=== PATIENT | female | born 1985 | race African-American/Black ===

== ENCOUNTER 2016-11-12 17:03 | Emergency (ER) | payer SELFPAY ==
--- NOTE | 2016-11-12 17:10 | ER Document Report ---
ED Medical Screen (RME) - General Stated Complaint: KNOT ON UNDERARM Mode of Arrival: Ambulatory Information source: Patient Notes: c/o painful knot, described as dull and constant, to the right axilla that has been present for the past 3 months but worsened this morning with increase in size, redness, and warmth. Denies drainage, fever, vomiting. Endorses associated nausea, chills. She has tried tylenol/ibuprofen without relief. I have greeted and performed a rapid initial assessment of this patient. A comprehensive ED assessment and evaluation of the patient, analysis of test results and completion of the medical decision making process will be conducted by additional ED providers. TRAVEL OUTSIDE OF THE [place] IN LAST 30 DAYS: No - Related Data Allergies/Adverse Reactions: No Known Allergies Allergy (Verified 11/12/16 17:08) Past Medical History Neurological Medical History: Reports: Hx Migraine Endocrine Medical History: Reports: Hx Diabetes Mellitus Type 2 - gestational only Musculoskeltal Medical History: Reports Hx Musculoskeletal Trauma Traumatic Medical History: Reports: Hx Fractures - toe Past Surgical History: Reports: Hx Section, Hx Tubal Ligation - Immunizations Immunizations up to date: Yes Hx Diphtheria, Pertussis, Tetanus Vaccination: Yes - 2013 Physical Exam - Vital signs Vitals: Temp Pulse Resp BP Pulse Ox 97.8 F 85 16 123/72 98 11/12/16 17:08 11/12/16 17:08 11/12/16 17:08 11/12/16 17:08 11/12/16 17:08 Course - Vital Signs Vital signs: Temp Pulse Resp BP Pulse Ox 97.8 F 85 16 123/72 98 11/12/16 17:08 11/12/16 17:08 11/12/16 17:08 11/12/16 17:08 11/12/16 17:08
--- NOTE | 2016-11-12 18:19 | ER Document Report ---
HPI - HPI Patient complains to provider of: soft tissue mass getting larger Onset: Other - 3 months Onset/Duration: Gradual Quality of pain: Achy Pain Level: 4 Context: 31-year-old female complaining of enlarging soft tissue mass under her right axilla. Her primary care doctor told her it was assisting gave her clindamycin which has not improved it. It is not red or hot. No fever. No breast pain. Associated Symptoms: None Exacerbated by: Movement Relieved by: Denies Similar symptoms previously: No Recently seen / treated by doctor: Yes - ROS ROS below otherwise negative: Yes Systems Reviewed and Negative: Yes All other systems reviewed and negative - REPRODUCTIVE LMP: unknown Reproductive: DENIES: : - DERM Skin Color: Normal Past Medical History - General Information source: Patient - Social History Smoking Status: Current Every Day Smoker Chew tobacco use (# tins/day): No Frequency of alcohol use: Rare Drug Abuse: None Family History: Arthritis, CAD, CVA, DM, Hypertension, Malignancy, Thyroid Disfunction Patient has suicidal ideation: No Patient has homicidal ideation: No Neurological Medical History: Reports: Hx Migraine Endocrine Medical History: Reports: Hx Diabetes Mellitus Type 2 - gestational only Renal/ Medical History: Denies: Hx Peritoneal Dialysis Musculoskeltal Medical History: Reports Hx Musculoskeletal Trauma Traumatic Medical History: Reports: Hx Fractures - toe Past Surgical History: Reports: Hx Section, Hx Tubal Ligation - Immunizations Immunizations up to date: Yes Hx Diphtheria, Pertussis, Tetanus Vaccination: Yes - 2013 Vertical Provider Document - CONSTITUTIONAL Agree With Documented VS: Yes Exam Limitations: No Limitations - INFECTION CONTROL TRAVEL OUTSIDE OF THE [place] IN LAST 30 DAYS: No - HEENT HEENT: Normocephalic - NECK Neck: Supple - RESPIRATORY Respiratory: Breath Sounds Normal, No Respiratory Distress O2 Sat by Pulse Oximetry: 98 - CARDIOVASCULAR Cardiovascular: Regular Rate, Regular Rhythm - NEURO Level of Consciousness: Awake, Alert - DERM Integumentary: Warm, Dry Notes: Soft tissue mass inferior to the right axilla, in posterior axillary line, not red or hot Course - Re-evaluation Re-evalutation: 11/12/16 20:09 The ultrasound suggests a lipoma which I explained to the patient for general surgery follow up - Vital Signs Vital signs: Temp Pulse Resp BP Pulse Ox 97.8 F 85 16 123/72 98 11/12/16 17:08 11/12/16 17:08 11/12/16 17:08 11/12/16 17:08 11/12/16 17:08 Discharge - Discharge Clinical Impression: Lipoma Qualifiers: Lipoma location: trunk Qualified Code(s): D17.1 - Benign lipomatous neoplasm of skin and subcutaneous tissue of trunk Condition: Good Disposition: HOME, SELF-CARE Instructions: Growth or Mass, Pending Workup ([facility]) Additional Instructions: see the general surgeon if you want the lipoma taken out to er any concerns or it gets red, hot, more tender Referrals: TYESHA LORA MD [ACTIVE STAFF] - Follow up as needed
[2016-11-12 20:05] VITALS: BP 115/67
== END 2016-11-12 20:14 | disposition home or self-care (01) ==
LOC: ER 17:03
DX: D17.1 Benign lipomatous neoplasm of skin and subcutaneous tissue of trunk (principal); F17.200 Nicotine dependence, unspecified, uncomplicated
CPT/HCPCS: 76882; 99283

== ENCOUNTER 2016-12-03 18:09 | Emergency (ER) | payer OTHER ==
[2016-12-03 18:17] VITALS: BP 136/81
[2016-12-03] MEDS ORDERED: IBUPROFEN 800 MG TABLET PO ONE (19:19)
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
[2016-12-03] MEDS ORDERED: HYDROCODONE/ACETAMINOPHEN 5-325 MG 6 TAB/DSPK PO PRN (22:06)
[2016-12-03] MEDS ORDERED: HYDROCORTISONE ACETATE 25 MG SUPP.RECT PR ONE (22:08)
== END 2016-12-03 22:47 | disposition home or self-care (01) ==
LOC: ER 18:09
DX: M54.5 Low back pain (principal); M54.2 Cervicalgia; M25.519 Pain in unspecified shoulder; V43.52XA Car driver injured in collision with other type car in traffic accident, initial encounter; K64.4 Residual hemorrhoidal skin tags
CPT/HCPCS: 99283; 72110; 72070; J3490

== ENCOUNTER 2017-02-18 21:00 | Emergency (ER) | payer SELFPAY ==
--- NOTE | 2017-02-18 22:54 | RADIOLOGY REPORT (SQ) ---
EXAM DESCRIPTION: WRIST LEFT 2 VIEWS COMPLETED DATE/TIME: 02/18/2017 10:41 pm REASON FOR STUDY: pain COMPARISON: 04/18/2014. NUMBER OF VIEWS: Two views. TECHNIQUE: AP and lateral radiographic images acquired of the left wrist. LIMITATIONS: None. FINDINGS: MINERALIZATION: Normal. BONES: No acute fracture or dislocation. No worrisome bone lesions. Normal alignment. SOFT TISSUES: No soft tissue swelling. No foreign body. OTHER: No other significant finding. IMPRESSION: NEGATIVE STUDY OF THE LEFT WRIST. NO RADIOGRAPHIC EVIDENCE OF ACUTE INJURY. TECHNICAL DOCUMENTATION: JOB ID: [id number] [employer]- All Rights Reserved
--- NOTE | 2017-02-18 22:55 | RADIOLOGY REPORT (SQ) ---
EXAM DESCRIPTION: HAND LEFT 2 VIEWS COMPLETED DATE/TIME: 02/18/2017 10:41 pm REASON FOR STUDY: pain COMPARISON: 07/05/2012. EXAM PARAMETERS: NUMBER OF VIEWS: Two view. TECHNIQUE: AP and lateral radiographic images acquired of the left hand. LIMITATIONS: None. FINDINGS: MINERALIZATION: Normal. BONES: No acute fracture or dislocation. No worrisome bone lesions. JOINTS: No effusions. SOFT TISSUES: No soft tissue swelling. No foreign body. OTHER: No other significant finding. IMPRESSION: NEGATIVE STUDY OF THE LEFT HAND. NO RADIOGRAPHIC EVIDENCE OF ACUTE INJURY. TECHNICAL DOCUMENTATION: JOB ID: [id number] [employer]- All Rights Reserved
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
[2017-02-19 00:54] VITALS: BP 118/78
== END 2017-02-19 00:49 | disposition home or self-care (01) ==
LOC: ER 21:00
DX: M79.642 Pain in left hand (principal); M54.2 Cervicalgia; M54.9 Dorsalgia, unspecified; F17.200 Nicotine dependence, unspecified, uncomplicated; V89.2XXA Person injured in unspecified motor-vehicle accident, traffic, initial encounter; Z98.51 Tubal ligation status
CPT/HCPCS: 99283

== ENCOUNTER 2017-05-20 14:53 | Emergency (ER) | payer SELFPAY ==
[2017-05-20] MEDS ORDERED: ONDANSETRON HCL INJ/PF 4 MG/2 ML SDV IV ONE (15:14)
[2017-05-20] MEDS ORDERED: NORMAL SALINE 1000 ML 1,000 ML IV PRN (15:14)
--- NOTE | 2017-05-20 15:16 | ER Document Report ---
ED Medical Screen (RME) - General Chief Complaint: Abdominal Cramping Stated Complaint: ABDOMINAL PAIN Time Seen by Provider: 05/20/17 15:14 Notes: Patient reports stating that she ate at [employer] last night and immediately began to have severe cramping and vomiting that is continued. She noticed on the bottom of the Bun that there was mold. Patient brings the food in with her and has it in her purse. She showed me a bun with what appears to be green mold on it. TRAVEL OUTSIDE OF THE [place] IN LAST 30 DAYS: No - Related Data Allergies/Adverse Reactions: No Known Allergies Allergy (Verified 05/20/17 15:02) Past Medical History - Social History Frequency of alcohol use: None Drug Abuse: None Neurological Medical History: Reports: Hx Migraine Endocrine Medical History: Reports: Hx Diabetes Mellitus Type 2 - gestational only Renal/ Medical History: Denies: Hx Peritoneal Dialysis Musculoskeltal Medical History: Reports Hx Musculoskeletal Trauma Traumatic Medical History: Reports: Hx Fractures - toe Past Surgical History: Reports: Hx Section, Hx Tubal Ligation - Immunizations Immunizations up to date: Yes Hx Diphtheria, Pertussis, Tetanus Vaccination: Yes - 2013 Physical Exam - Vital signs Vitals: Temp Pulse Resp BP Pulse Ox 98.6 F 94 14 127/82 H 100 05/20/17 15:02 05/20/17 15:02 05/20/17 15:02 05/20/17 15:02 05/20/17 15:02 Course - Vital Signs Vital signs: Temp Pulse Resp BP Pulse Ox 98.6 F 94 14 127/82 H 100 05/20/17 15:02 05/20/17 15:02 05/20/17 15:02 05/20/17 15:02 05/20/17 15:02
[2017-05-20 15:54] LABS: ABSOLUTE BASOPHILS # (AUTO) 0.1 10^3/uL (0.0-0.2); ABSOLUTE EOSINOPHILS # (AUTO) 0.2 10^3/uL (0.0-0.6); ABSOLUTE LYMPHOCYTES (AUTO) 3.1 10^3/uL (0.5-4.7); ABSOLUTE MONOCYTES (AUTO) 0.7 10^3/uL (0.1-1.4); ABSOLUTE NEUT (AUTO) 6.2 10^3/uL (1.7-8.2); BASOPHILS % (AUTO) 0.5 % (0-2); EOSINOPHILS % (AUTO) 2.3 % (0-6); HEMATOCRIT 38.6 % (36.0-47.0); HEMOGLOBIN 12.9 g/dL (12.0-15.5); HGB HCT DIFFERENCE 0.1; LYMPHOCYTES % (AUTO) 29.9 % (13-45); MEAN CORPUSCULAR HEMOGLOBIN 31.5 pg (27.0-33.4); MEAN CORPUSCULAR HGB CONC 33.5 g/dL (32.0-36.0); MEAN CORPUSCULAR VOLUME 94 fl (80-97); MONOCYTES % (AUTO) 6.8 % (3-13); RED BLOOD COUNT 4.11 10^6/uL (3.72-5.28); RED CELL DISTRIBUTION WIDTH 13.9 % (11.5-14.0); SEGMENTED NEUTROPHILS % (AUTO) 60.5 % (42-78); WHITE BLOOD COUNT 10.3 10^3/uL (4.0-10.5)
[2017-05-20 16:07] LABS: AMORPHOUS SEDIMENT,URINE TRACE /HPF; APPEARANCE,URINE TURBID; BILIRUBIN,URINE NEGATIVE (NEGATIVE); GLUCOSE, URINE NEGATIVE (NEGATIVE); KETONES,URINE NEGATIVE (NEGATIVE); LEUKOCYTE ESTERASE,URINE LARGE (NEGATIVE); NITRITE,URINE POSITIVE (NEGATIVE); PROTEIN,URINE 30 mg/dL (NEGATIVE); URINE SPECIFIC GRAVITY 1.026; UROBILINOGEN,URINE NEGATIVE mg/dL (<2.0)
[2017-05-20 16:12] LABS: ALANINE AMINOTRANSFERASE 29 U/L (9-52); ALBUMIN 4.7 g/dL (3.5-5.0); ALKALINE PHOSPHATASE 57 U/L (38-126); ANION GAP 15 (5-19); ASPARTATE AMINO TRANSFERASE 23 U/L (14-36); BILIRUBIN,DIRECT 0.4 mg/dL (0.0-0.4); BILIRUBIN,TOTAL 0.5 mg/dL (0.2-1.3); BLOOD UREA NITROGEN 15 mg/dL (7-20); CARBON DIOXIDE 25 mmol/L (22-30); CHLORIDE 102 mmol/L (98-107); CREATININE RESULT 0.79 mg/dL (0.52-1.25); GLUCOSE 91 mg/dL (75-110); LIPASE 46.9 U/L (23-300); POTASSIUM 3.6 mmol/L (3.6-5.0); SODIUM 141.5 mmol/L (137-145); TOTAL PROTEIN 7.9 g/dL (6.3-8.2)
--- NOTE | 2017-05-20 16:49 | ER Document Report ---
ED GI/ - General Chief Complaint: Abdominal Cramping Stated Complaint: ABDOMINAL PAIN Time Seen by Provider: 05/20/17 15:14 Mode of Arrival: Ambulatory Information source: Patient Notes: 31 yo normally health female that ate chicken sandwich with moldy bread at 1:30 am, went to work ate it, bad taste in mouth, tried to make herself vomit, bottom of bun was molded, at 5:30 am stomach started to cramp, vomiting, headache, nausea. Diarrhea x 2. feeling a little better after meds and IV NS infusing. Taking azo for 2 days, had terminal dysuria. TRAVEL OUTSIDE OF THE [place] IN LAST 30 DAYS: No - Related Data Allergies/Adverse Reactions: No Known Allergies Allergy (Verified 05/20/17 15:02) Past Medical History - General Information source: Patient - Social History Smoking Status: Current Every Day Smoker Frequency of alcohol use: None Drug Abuse: None Lives with: Family Family History: Arthritis, CAD, CVA, DM, Hypertension, Malignancy, Thyroid Disfunction Patient has suicidal ideation: No Patient has homicidal ideation: No Neurological Medical History: Reports: Hx Migraine Endocrine Medical History: Reports: Hx Diabetes Mellitus Type 2 - gestational only Renal/ Medical History: Denies: Hx Peritoneal Dialysis Musculoskeltal Medical History: Reports Hx Musculoskeletal Trauma Traumatic Medical History: Reports: Hx Fractures - toe Past Surgical History: Reports: Hx Section, Hx Tubal Ligation - Immunizations Immunizations up to date: Yes Hx Diphtheria, Pertussis, Tetanus Vaccination: Yes - 2013 Review of Systems - Review of Systems Constitutional: No symptoms reported EENT: No symptoms reported Cardiovascular: No symptoms reported Respiratory: No symptoms reported Gastrointestinal: See HPI Genitourinary: No symptoms reported Female Genitourinary: No symptoms reported Musculoskeletal: No symptoms reported Skin: No symptoms reported Hematologic/Lymphatic: No symptoms reported Neurological/Psychological: No symptoms reported Physical Exam - Vital signs Vitals: Temp Pulse Resp BP Pulse Ox 98.6 F 94 14 127/82 H 100 05/20/17 15:02 05/20/17 15:02 05/20/17 15:02 05/20/17 15:02 05/20/17 15:02 Interpretation: Normal - General General appearance: Appears well, Alert In distress: None - HEENT Head: Normocephalic, Atraumatic Eyes: Normal Pupils: PERRL Mucous membranes: Dry Neck: Supple. No: Lymphadenopathy - Respiratory Respiratory status: No respiratory distress Chest status: Nontender Breath sounds: Normal Chest palpation: Normal - Cardiovascular Rhythm: Regular Heart sounds: Normal auscultation Murmur: No - Abdominal Inspection: Normal Distension: No distension Bowel sounds: Normal Tenderness: Tender - mild supropubic Organomegaly: No organomegaly. No: Hepatomegaly, Splenomegaly - Back Back: Normal, Nontender. No: CVA tenderness - Extremities General upper extremity: Normal inspection, Nontender, Normal color, Normal ROM , Normal temperature General lower extremity: Normal inspection, Nontender, Normal color, Normal ROM , Normal temperature, Normal weight bearing. 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 - Vital Signs Vital signs: Temp Pulse Resp BP Pulse Ox 98.4 F 66 16 129/85 H 100 05/20/17 17:53 05/20/17 17:53 05/20/17 17:53 05/20/17 17:53 05/20/17 17:53 - Laboratory Result Diagrams: 05/20/17 15:35 05/20/17 15:35 Laboratory results interpreted by me: 05/20/17 15:35 Urine Protein 30 H Urine Blood SMALL H Urine Nitrite POSITIVE H Ur Leukocyte Esterase LARGE H Discharge - Discharge Clinical Impression: Vomiting and diarrhea, Abdominal cramping, Urinary tract infection Condition: Good Disposition: HOME, SELF-CARE Instructions: Diarrhea, Nonspecific ([facility]), Nausea or Vomiting, Nonspecific ([facility] ), Rocephin ([facility]), Urinary Tract Infection ([facility]) Additional Instructions: plenty of fluids antinausea medication prescription for you to er if worse urine culture is pending Please complete the patient satisfaction survey if you get one, and return it.. If you do not receive a survey, then you can go to the [facility] website, [email or web address] and place your comments about your very good care. Thank you very much. It was a pleasure being your medical provider today. Prescriptions: Promethazine HCl [Phenergan 25 mg Tablet] 25 mg PO Q4HP PRN #30 tablet PRN Reason: Nitrofurantoin/Nitrofuran Mac [Macrobid 100 mg Capsule] 100 mg PO BID #14 capsule Forms: Return to Work
[2017-05-20] MEDS ORDERED: ACETAMINOPHEN 325 MG TABLET PO ONE (17:19)
[2017-05-20] MEDS ORDERED: CEFTRIAXONE 1 GM/D5W RTU 1 GM/50 ML RTUPB IV ONE (18:00)
[2017-05-20 18:09] VITALS: BP 129/85
== END 2017-05-20 18:05 | disposition home or self-care (01) ==
LOC: ER 14:53
DX: N39.0 Urinary tract infection, site not specified (principal); R11.2 Nausea with vomiting, unspecified; R19.7 Diarrhea, unspecified; R10.9 Unspecified abdominal pain; R51 Headache; F17.200 Nicotine dependence, unspecified, uncomplicated
CPT/HCPCS: 99284; 96361; 96375; 96365; 36415; 87086; 83690; 85025; 81025; 87088; 80053; 81001; 87186; J2405; J7030; J0696

== ENCOUNTER 2017-07-29 19:35 | Emergency (ER) | payer SELFPAY | END 2017-07-29 20:00 | disposition left against medical advice (07) | LOC: ER 19:35 | DX: Z53.21 Procedure and treatment not carried out due to patient leaving prior to being seen by health care provider (principal) ==

== ENCOUNTER 2018-02-28 08:23 | Emergency (ER) | payer SELFPAY ==
--- NOTE | 2018-02-28 09:13 | ER Document Report ---
ED General - General Chief Complaint: Swollen Glands Stated Complaint: lymph node Mode of Arrival: Ambulatory Information source: Patient TRAVEL OUTSIDE OF THE [place] IN LAST 30 DAYS: No - HPI Notes: 32-year-old female presents to the ED with complaints of right side of torso, distal to axillary with a palpable mass that has been there for approximately 4 years but has become progressively worse in the last week and a half. States she has had this mass evaluated 4 years ago by her primary care doctor, was told she can remember exactly. Has tried [id number] ibuprofen without full relief. Patient denies any breast mass or breast pain. No nipple discharge. Family history of breast cancer. Denies fevers, chills, chest pain ,palpitations, shortness of breath, dyspnea, nausea, vomiting, diarrhea, abdominal pain, hematuria,blurred vision, double vision, loss of vision, speech changes, LH, dizziness, syncope, headaches, wheezing, ST, URI, neck pain, weakness, bowel or bladder dysfunction, saddle anesthesia, numbness or tingling in bilateral upper or lower extremities equally, muscle paralysis, weakness in bilateral upper or lower extremities equally or rash. Denies IV drug use. - Related Data Allergies/Adverse Reactions: No Known Allergies Allergy (Verified 02/28/18 08:27) Past Medical History - General Information source: Patient - Social History Smoking Status: Current Every Day Smoker Chew tobacco use (# tins/day): No Frequency of alcohol use: None Drug Abuse: None Family History: Arthritis, CAD, CVA, DM, Hypertension, Malignancy, Thyroid Disfunction Patient has suicidal ideation: No Patient has homicidal ideation: No Neurological Medical History: Reports: Hx Migraine Endocrine Medical History: Reports: Hx Diabetes Mellitus Type 2 - gestational only Renal/ Medical History: Denies: Hx Peritoneal Dialysis Musculoskeltal Medical History: Reports Hx Musculoskeletal Trauma Traumatic Medical History: Reports: Hx Fractures - toe Past Surgical History: Reports: Hx Section, Hx Tubal Ligation - Immunizations Immunizations up to date: Yes Hx Diphtheria, Pertussis, Tetanus Vaccination: Yes - 2013 Review of Systems - Review of Systems Constitutional: No symptoms reported EENT: No symptoms reported Cardiovascular: No symptoms reported Respiratory: No symptoms reported Gastrointestinal: No symptoms reported Genitourinary: No symptoms reported Female Genitourinary: No symptoms reported Musculoskeletal: No symptoms reported Skin: See HPI Hematologic/Lymphatic: No symptoms reported Neurological/Psychological: No symptoms reported Physical Exam - Vital signs Vitals: Temp Pulse Resp BP Pulse Ox 98.4 F 69 14 129/81 H 99 02/28/18 08:32 02/28/18 08:32 02/28/18 08:32 02/28/18 08:32 02/28/18 08:32 - Notes Notes: PHYSICAL EXAMINATION: GENERAL: Well-appearing, well-nourished and in no acute distress. HEAD: Atraumatic, normocephalic. EYES: Pupils equal round and reactive to light, extraocular movements intact, conjunctiva are normal. ENT: Nares patent, oropharynx clear without exudates. Moist mucous membranes. NECK: Normal range of motion, supple without lymphadenopathy LUNGS: Breath sounds clear to auscultation bilaterally and equal. No wheezes rales or rhonchi. HEART: Regular rate and rhythm without murmurs ABDOMEN: Soft, nontender, nondistended abdomen. No guarding, no rebound. No masses appreciated. Female : deferred Musculoskeletal: Normal range of motion, no pitting or edema. No cyanosis. NEUROLOGICAL: Cranial nerves grossly intact. Normal speech, normal gait. Normal sensory, motor exams PSYCH: Normal mood, normal affect. SKIN: Warm, Dry, normal turgor, no rashes or lesions noted. Approximately 6 cm distal to the axilla with mobile, soft mass that is without erythema, induration or swelling pain no surrounding lymphadenopathy. right breast mass palpated in the axilla around breast tissue. No nipple discharge. No dimpling noted to right breast. Course - Re-evaluation Re-evalutation: 02/28/18 11:56 32-year-old female afebrile, vitals stable and in no distress presents for evaluation of a lump to her right torso, CBC negative for leukocytosis or anemia. CMP negative, no electrolyte disturbances.Ultrasound of the right mass shows an Increased size of lipoma measuring 2.9 x 4.2 x 1.6 cm. Discussed with patient that she will need a surgical consult to have lipoma removed, lipoma does not look infected, no pain or induration. Discussed with patient she also needs to do self breast exams monthly while in the shower to assess for any breast mass. I have reevaluated this patient multiple times and no significant life threatening changes, no signs of toxicity, sepsis or peritonitis are noted. The patient and I have discussed the diagnosis and risks , and we agree with discharging home and close follow-up. We also discussed returning to the Emergency Department immediately if new or worsening symptoms occur with the understanding that symptoms and presentations can change. At this time will discharge with return precautions and follow-up recommendations. Verbal discharge instructions given a the bedside and opportunity for questions given. We have discussed the symptoms which are most concerning (e.g. worsening pain, edema, drainage of mass, fever chills, etc. ) that necessitate immediate return. Medication warnings reviewed. All questions and concerns answered by this provider. Patient is in agreement with this plan and has verbalized understanding of return precautions and the need for primary care follow up as well as a surgeon to follow-up in the next 24-72 hours. Patient verbalized understanding of plan of care and agree with plan of care. - Vital Signs Vital signs: Temp Pulse Resp BP Pulse Ox 97.6 F 63 16 126/80 H 100 02/28/18 12:02 02/28/18 12:02 02/28/18 12:02 02/28/18 12:02 02/28/18 12:02 - Laboratory Result Diagrams: 02/28/18 10:10 02/28/18 10:10 Laboratory results interpreted by me: 02/28/18 10:10 Hct 35.9 L RDW 14.1 H Discharge - Discharge Clinical Impression: Lipoma Qualifiers: Lipoma location: other site Qualified Code(s): D17.79 - Benign lipomatous neoplasm of other sites Condition: Stable Disposition: HOME, SELF-CARE Additional Instructions: Your ultrasound showed that you have a lipoma, which is a benign fatty tissue, which is not infected. advised to follow-up with surgeon for removal. Take over -the-counter ibuprofen and Tylenol as needed for pain control. Do not manipulate lipoma. Follow-up with PCP within 3 days. Return immediately for any new or worsening symptoms. Follow up with primary care provider, call tomorrow to make followup appointment. Referrals: GERARDO MORA MD [[facility]] - Follow up in 1 week RUBÉN GÓMEZ MD [COMMUNITY BASED STAFF] - Follow up in 3-5 days PETER JOSHI MD [ACTIVE STAFF] - Follow up in 3-5 days
[2018-02-28] MEDS ORDERED: KETOROLAC TROMETHAMINE 60 MG/2 ML SDV IM ONE (09:36)
[2018-02-28] MEDS ORDERED: IBUPROFEN 800 MG TABLET PO ONE (09:48)
[2018-02-28 10:25] LABS: ABSOLUTE EOSINOPHILS # (AUTO) 0.1 10^3/uL (0.0-0.6); ABSOLUTE LYMPHOCYTES (AUTO) 1.9 10^3/uL (0.5-4.7); ABSOLUTE MONOCYTES (AUTO) 0.5 10^3/uL (0.1-1.4); ABSOLUTE NEUT (AUTO) 4.8 10^3/uL (1.7-8.2); BASOPHILS % (AUTO) 0.2 % (0-2); EOSINOPHILS % (AUTO) 1.7 % (0-6); HEMATOCRIT 35.9 % (36.0-47.0); HEMOGLOBIN 12.2 g/dL (12.0-15.5); LYMPHOCYTES % (AUTO) 26.1 % (13-45); MEAN CORPUSCULAR HEMOGLOBIN 31.1 pg (27.0-33.4); MEAN CORPUSCULAR HGB CONC 33.9 g/dL (32.0-36.0); MEAN CORPUSCULAR VOLUME 92 fl (80-97); MONOCYTES % (AUTO) 7.1 % (3-13); PLATELET COUNT 201 10^3/uL (150-450); RED BLOOD COUNT 3.92 10^6/uL (3.72-5.28); RED CELL DISTRIBUTION WIDTH 14.1 % (11.5-14.0); SEGMENTED NEUTROPHILS % (AUTO) 64.9 % (42-78); TOTAL CELLS COUNTED % (AUTO) 100 %; WHITE BLOOD COUNT 7.4 10^3/uL (4.0-10.5)
[2018-02-28 10:48] LABS: ALANINE AMINOTRANSFERASE 28 U/L (9-52); ALBUMIN 3.8 g/dL (3.5-5.0); ALKALINE PHOSPHATASE 42 U/L (38-126); ANION GAP 11 (5-19); ASPARTATE AMINO TRANSFERASE 18 U/L (14-36); BILIRUBIN,DIRECT 0.2 mg/dL (0.0-0.4); BILIRUBIN,TOTAL 0.2 mg/dL (0.2-1.3); BLOOD UREA NITROGEN 13 mg/dL (7-20); CALCIUM 9.4 mg/dL (8.4-10.2); CARBON DIOXIDE 25 mmol/L (22-30); CHLORIDE 107 mmol/L (98-107); GLUCOSE 102 mg/dL (75-110); POTASSIUM 4.2 mmol/L (3.6-5.0); SODIUM 142.5 mmol/L (137-145); TOTAL PROTEIN 6.5 g/dL (6.3-8.2)
--- NOTE | 2018-02-28 11:46 | RADIOLOGY REPORT (SQ) ---
EXAM DESCRIPTION: U/S EXTREMITY NONVASCULAR LTD COMPLETED DATE/TIME: 02/28/2018 11:37 am REASON FOR STUDY: right mass to axillary COMPARISON: 11/12/2016 TECHNIQUE: Dynamic and static grayscale images acquired of the localized site of clinical concern an d recorded on PACS. Additional selected color Doppler and spectral images recorded. SITE OF CONCERN: Right axilla LIMITATIONS: None. FINDINGS: Well-circumscribed isoechoic subcutaneous mass with echogenic capsule measuring 2.9 x 4.2 x 1.6 cm. IMPRESSION: Slight increase in size of lipoma. TECHNICAL DOCUMENTATION: JOB ID: [id number] [employer]- All Rights Reserved Reading location - IP/workstation name: [email or web address]
[2018-02-28 12:04] VITALS: BP 126/80
== END 2018-02-28 12:04 | disposition home or self-care (01) ==
LOC: ER 08:23
DX: D17.1 Benign lipomatous neoplasm of skin and subcutaneous tissue of trunk (principal); Z80.3 Family history of malignant neoplasm of breast; F17.200 Nicotine dependence, unspecified, uncomplicated
CPT/HCPCS: 36415; 76882; 80053; 85025; 99284; J1885

== ENCOUNTER 2018-03-31 22:33 | Emergency (ER) | payer SELFPAY ==
[2018-03-31 22:45] VITALS: BP 121/75
[2018-03-31] MEDS ORDERED: DIPH/PERTUSS(ACELL)/TETANUS VAC/PF 0.5 ML SYR (>=10YO) IM ONE (22:55)
[2018-03-31] MEDS ORDERED: KETOROLAC TROMETHAMINE 60 MG/2 ML SDV IM ONE (22:55)
[2018-03-31] MEDS ORDERED: ONDANSETRON 4 MG TAB.RAPDIS PO ONE (22:55)
--- NOTE | 2018-03-31 22:55 | ER Document Report ---
ED Animal Bite - General Mode of Arrival: Ambulatory Information source: Patient TRAVEL OUTSIDE OF THE [place] IN LAST 30 DAYS: No <RADHA LATIF - Last Filed: 04/01/18 02:48> <RIYA BARRERA - Last Filed: 04/01/18 05:58> - General Chief Complaint: Dog Bite Stated Complaint: ARM INJURY/DOG BITE Time Seen by Provider: 03/31/18 22:55 Notes: Patient is a 32 year old female presenting to the emergency department complaining of a dog bite. Patient states she was sitting on her porch when she was bit on her right forearm by an unknown pitbull. She states the dog locked onto her arm and she snatched it away and ran into the house. She states the dog had a collar on but is unsure who owns it. Patient complains of a headache at bedside. Patient is unsure of her last tetanus shot. (RADHA LATIF) - Related Data Allergies/Adverse Reactions: No Known Allergies Allergy (Verified 02/28/18 08:27) Past Medical History - General Information source: Patient - Social History Smoking Status: Current Every Day Smoker Cigarette use (# per day): Yes Chew tobacco use (# tins/day): No Frequency of alcohol use: None Drug Abuse: None Family History: Arthritis, CAD, CVA, DM, Hypertension, Malignancy, Thyroid Disfunction Neurological Medical History: Reports: Hx Migraine Endocrine Medical History: Reports: Hx Diabetes Mellitus Type 2 - gestational only Musculoskeletal Medical History: Reports Hx Musculoskeletal Trauma Traumatic Medical History: Reports: Hx Fractures - toe Past Surgical History: Reports: Hx Section, Hx Tubal Ligation - Immunizations Immunizations up to date: Yes Hx Diphtheria, Pertussis, Tetanus Vaccination: Yes - 2013 <RADHA LATIF - Last Filed: 04/01/18 02:48> Review of Systems - Review of Systems Constitutional: No symptoms reported EENT: No symptoms reported Cardiovascular: No symptoms reported Respiratory: No symptoms reported Gastrointestinal: No symptoms reported Genitourinary: No symptoms reported Female Genitourinary: No symptoms reported Musculoskeletal: See HPI Skin: See HPI Hematologic/Lymphatic: No symptoms reported Neurological/Psychological: No symptoms reported -: Yes All other systems reviewed and negative <RADHA LATIF - Last Filed: 04/01/18 02:48> Physical Exam - General General appearance: Appears well, Alert In distress: None - HEENT Head: Normocephalic, Atraumatic Eyes: Normal Conjunctiva: Normal Extraocular movements intact: Yes Pupils: PERRL Mucous membranes: Normal Neck: Normal - Respiratory Respiratory status: No respiratory distress - Cardiovascular Rhythm: Regular Heart sounds: Normal auscultation Murmur: No Friction rub: No Gallop: None auscultated - Extremities General upper extremity: Normal ROM General lower extremity: Normal ROM Forearm: Laceration - 2 cm laceration, bleeding controlled, Other - Contusion to the right proximal forearm. - Neurological Neuro grossly intact: Yes Cognition: Normal Orientation: AAOx4 [place] Coma Scale Eye Opening: Spontaneous [place] Coma Scale Verbal: Oriented [place] Coma Scale Motor: Obeys Commands [place] Coma Scale Total: 15 Speech: Normal - Psychological Associated symptoms: Normal affect, Normal mood - Skin Skin Temperature: Warm Skin Moisture: Dry Skin Color: Normal <RADHA LATIF - Last Filed: 04/01/18 02:48> - Vital signs Vitals: Temp Pulse BP Pulse Ox 98.5 F 69 121/75 99 03/31/18 22:44 03/31/18 22:44 03/31/18 22:44 03/31/18 22:44 Course <RADHA LATIF - Last Filed: 04/01/18 02:48> - Diagnostic Test Radiology reviewed: Image reviewed, Reports reviewed <RIYA BARRERA - Last Filed: 04/01/18 05:58> - Re-evaluation Re-evalutation: 04/01/18 00:13 Patient rechecked. Informed of negative xray. Patient states she feels better and is ready to go home. Patient understands and agrees to discharge plan. ( RADHA LATIF) Patient is a 32-year-old female who was bit on her right forearm by a pit bull this evening. Dog appeared cared for. Patient does not know anything else about the dog and did not call animal control. Tetanus was updated. X-ray was performed to evaluate for foreign body. No evidence for fracture or foreign body in x-ray. Wound was cleaned and patient was placed on Augmentin. She is also given medication for pain. She is to return for wound check in 48 hours or sooner if she has any worsening or concerning symptoms. Understands agrees with plan. Stable for discharge. (RIYA BARRERA) - Vital Signs Vital signs: Temp Pulse Resp BP Pulse Ox 98.5 F 69 121/75 99 03/31/18 22:44 03/31/18 22:44 03/31/18 22:44 03/31/18 22:44 Procedures - Immobilization Right Arm Time completed: 23:44 Pre-Proc Neuro Vasc Exam: Normal Immobilizer type: Sling Performed by: RN Post-Proc Neuro Vasc Exam: Normal Alignment checked and good: Yes <RADHA LATIF - Last Filed: 04/01/18 02:48> Discharge <RADHA LATIF - Last Filed: 04/01/18 02:48> <RIYA BARRERA - Last Filed: 04/01/18 05:58> - Discharge Clinical Impression: Dog bite of extremity Condition: Stable Disposition: HOME, SELF-CARE Instructions: Animal Bites ([facility]), Contusion ([facility]), Non-Sutured Laceration ([facility]) , Temporary Sling ([facility]) Prescriptions: Amox Tr/Potassium Clavulanate [Augmentin 875-125 mg Tablet] 1 tab PO BID #20 tablet Cyclobenzaprine HCl [Flexeril 10 Mg Tablet] 10 mg PO TID #30 tablet Hydrocodone/Acetaminophen [[place] 5-325 mg Tablet] 1 tab PO BID #6 tablet Forms: Return to Work Scribe Attestation: 04/01/18 05:58 I personally performed the services described in the documentation, reviewed and edited the documentation which was dictated to the scribe in my presence, and it accurately records my words and actions. (RIYA BARRERA) Scribe Documentation - Scribe Written by Amanda:: Amanda Zaragoza, 03/31/2018 23:55 acting as scribe for :: Nica <RADHA LATIF - Last Filed: 04/01/18 02:48>
[2018-03-31] MEDS ORDERED: AMOXICILLIN TR/POT CLAVULANATE 500-125 MG TAB PO ONE (23:42)
--- NOTE | 2018-03-31 23:59 | RADIOLOGY REPORT (SQ) ---
EXAM DESCRIPTION: XR FOREARM 2 VIEWS COMPLETED DATE/TME: 03/31/2018 22:55 CLINICAL HISTORY: 32 years, Female, bite, eval for FB COMPARISON: None. NUMBER OF VIEWS: Two TECHNIQUE: Two views of the RIGHT forearm were obtained in AP and lateral projection. LIMITATIONS: None. FINDINGS: No fracture or dislocation. The soft tissues are within normal limits. The joint spaces are preserved. IMPRESSION: No acute radiographic abnormality. 2010 [employer]- All Rights Reserved
[2018-04-01] MEDS ORDERED: ONDANSETRON ODT 4 MG TAB (6 TAB/ER DISP) PO PRN (00:07)
[2018-04-01] MEDS ORDERED: HYDROCODONE/ACETAMINOPHEN 5-325 MG (6 TAB/ER DISP) PO PRN (00:07)
== END 2018-04-01 00:34 | disposition home or self-care (01) ==
LOC: ER 22:33
DX: S51.851A Open bite of right forearm, initial encounter (principal); W54.0XXA Bitten by dog, initial encounter; Y92.008 Other place in unspecified non-institutional (private) residence as the place of occurrence of the external cause; R51 Headache; F17.210 Nicotine dependence, cigarettes, uncomplicated; Z23 Encounter for immunization
CPT/HCPCS: 99283; 96372; 90471; 73090; 90715; J1885; S0119

== ENCOUNTER 2018-04-07 12:09 | Day surgery (SDC) | payer SELFPAY ==
[~2018-04-07 12:09] MED LIST: BUPIVACAINE HCL 0.25 % INJ/PF (2.5 MG/1 ML) 30 ML VIAL ONE; CEFAZOLIN 2 GM/D5W RTU 2 GM/50 ML RTUPB IV PRN; FENTANYL CITRATE INJ/PF 100 MCG/2 ML AMPUL ONE; LIDOCAINE 1% INJ-PF (10 MG/ML) 30 ML SDV ONE; LIDOCAINE 2% INJ-PF (20 MG/ML) 10 ML AMPUL ONE; MIDAZOLAM 2 MG/2 ML INJ ONE; PROPOFOL INJ 200 MG/20 ML VIAL IV ONE
[2018-04-07] MEDS ORDERED: PROPOFOL INJ 200 MG/20 ML VIAL IV ONE (14:39)
[2018-04-07] MEDS ORDERED: KETOROLAC TROMETHAMINE 60 MG/2 ML SDV ONE (17:42)
[2018-04-07] MEDS: FENTANYL CITRATE INJ/PF 100 MCG/2 ML AMPUL ONE ×2 (17:45→17:50)
[2018-04-07] MEDS ORDERED: MORPHINE SULFATE 10 MG/ML INJ IV PRN (17:57)
[2018-04-07] MEDS ORDERED: MEPERIDINE HCL/PF INJ 25 MG/1 ML DISP.SYRIN IV PRN (17:57)
[2018-04-07] MEDS ORDERED: OXYCODONE-ACETAMINOPHEN 5-325 MG TABLET PO PRN (17:57)
[2018-04-07] MEDS ORDERED: DIPHENHYDRAMINE HCL 50 MG/ML VIAL IV PRN (17:57)
[2018-04-07] MEDS ORDERED: FENTANYL CITRATE INJ/PF 100 MCG/2 ML AMPUL IV PRN ×3 (17:57)
[2018-04-07] MEDS ORDERED: PROMETHAZINE HCL INJ 25 MG/1 ML VIAL IV PRN ×2 (17:57)
[2018-04-07] MEDS ORDERED: ACETAMINOPHEN 1,000 MG/100 ML RTUPB IV ONE (18:07)
[2018-04-07 19:31] VITALS: BP 123/70
--- NOTE | 2018-04-10 16:51 | Discharge Summary ---
Discharge Summary (SDC) - Discharge Final Diagnosis: Right axillary mass, 3 cm Date of Surgery: 04/07/18 Discharge Date: 04/07/18 Condition: Stable Forms: ASU Anesthesia D/C Instruction, Discharge POC-Surgical Service Referrals: DAYSI REMY MD [ACTIVE STAFF] - Discharge Diet: As Tolerated Respiratory Treatments at Home: Deep Breathing/Coughing Discharge Activity: No Driving, No Lifting Over 10 Pounds, No Lifting/Push/ Pulling, Slowly Increase Activity, No tub bath Home Care Assistance: None Needed Report the Following to Your Physician Immediately: Shortness of Breath, Nausea , Vomiting, Increase in Pain, Fever over 101 Degrees, Unusual Bleeding, Redness , Swelling, Warmth, Increased Soreness, Drainage-Yellow, Drainage-Guerra, Drainage -Green, Drainage-Foul Smelling, Tingling Sensation, Wheezing, IV Site Infection Signs, Urinary Infection Signs
--- NOTE | 2018-04-10 16:56 | Operative Report ---
Nonrecallable Operative Report DATE OF SURGERY: 04/07/18 PREOPERATIVE DIAGNOSIS: Tender right axillary mass POSTOPERATIVE DIAGNOSIS: 3 cm right axillary mass/area of induration OPERATION: 1. Excision of a 3 cm right axillary mass. 2. Intermediate closure of a 3 cm axillary incision. SURGEON: DAYSI REMY ANESTHESIA: LMAC TISSUE REMOVED OR ALTERED: 3 cm axillary mass COMPLICATIONS: None apparent ESTIMATED BLOOD LOSS: Minimal PROCEDURE: Drains/implants: None. Procedure in detail: After informed consent was obtained, the patient was brought to the operating room and laid in the supine position. The area of the right axilla was prepped and draped in a normal sterile fashion. A 15 blade scalpel was used to create a 3 cm incision over the area of tenderness and induration. Blunt dissection was used to dissect to the area of induration. Several small lymph nodes in the area were identified as well as indurated fat. The area of induration was excised using sharp dissection, blunt dissection, and judicious amounts of Bovie electrocautery. This was passed off the field and sent to pathology. Hemostasis was ensured, and the subcutaneous tissue was closed using 3-0 Vicryl suture in simple running fashion. The overlying skin was closed using 4-0 Vicryl Rapide suture in subcuticular fashion. All sponge, instrument, and needle counts were correct 2. Condition: Stable.
== END 2018-04-07 19:30 | disposition home or self-care (01) ==
LOC: OROUT 12:09
PROVIDERS: ATTEND Surgery
DX: R22.31 Localized swelling, mass and lump, right upper limb (principal); R01.1 Cardiac murmur, unspecified; F17.210 Nicotine dependence, cigarettes, uncomplicated; D64.9 Anemia, unspecified; I49.9 Cardiac arrhythmia, unspecified; R00.2 Palpitations; Z79.899 Other long term (current) drug therapy
CPT/HCPCS: 81025; 88305 ×2; 21552; J2250; J1885; J3010; J3490 ×2; J2704; J0690; J0131; 400

== ENCOUNTER 2019-07-09 03:50 | Emergency (ER) | payer SELFPAY ==
--- NOTE | 2019-07-09 08:29 | ER Document Report ---
HPI - HPI Time Seen by Provider: 07/09/19 04:54 Pain Level: 4 Notes: Patient is a 33-year-old female with no significant past medical history who presents complaint of bilateral eye redness and tearing with irritation x1 day. Patient states that she has had this happen before. She does not wear contact lenses and does not recall anything getting in her eyes. She is able to eat and drink without difficulty. She is urinating normally. Denies drug allergies. She has not had any floaters in her vision. Denies drug allergies. No light sensitivity. She does not wear contact lenses. Denies any headache, fever, head injury, neck pain, changes in speech/mentation/hearing, URI, sore throat, chest pain, palpitations, syncope, cough, shortness of breath, wheeze, dyspnea, abdominal pain, nausea/vomiting/diarrhea, urinary retention, dysuria, hematuria, loss of control of bowel or bladder, numbness/tingling, saddle anesthesia, muscle paralysis/weakness, or rash. - ROS Systems Reviewed and Negative: Yes All other systems reviewed and negative - EENT EENT: REPORTS: Eye problems - REPRODUCTIVE Reproductive: DENIES: : Past Medical History - Social History Smoking Status: Current Every Day Smoker Family History: Arthritis, CAD, CVA, DM, Hypertension, Malignancy, Thyroid Disfunction Patient has suicidal ideation: No Patient has homicidal ideation: No - Past Medical History Cardiac Medical History: Denies: Hx Coronary Artery Disease, Hx Heart Attack, Hx Hypertension Pulmonary Medical History: Denies: Hx Asthma, Hx Bronchitis, Hx COPD, Hx Pneumonia Neurological Medical History: Reports: Hx Migraine. Denies: Hx Cerebrovascular Accident, Hx Seizures Endocrine Medical History: Reports: Hx Diabetes Mellitus Type 2 - gestational only Renal/ Medical History: Denies: Hx Peritoneal Dialysis Musculoskeletal Medical History: Denies Hx Arthritis, Reports Hx Musculoskeletal Trauma Traumatic Medical History: Reports: Hx Fractures - toe Past Surgical History: Reports: Hx Section, Hx Tubal Ligation - Immunizations Immunizations up to date: Yes Hx Diphtheria, Pertussis, Tetanus Vaccination: Yes - 2013 Vertical Provider Document - CONSTITUTIONAL Agree With Documented VS: Yes Notes: PHYSICAL EXAMINATION: GENERAL: Well-appearing, well-nourished and in no acute distress. A&Ox4 HEAD: Atraumatic, normocephalic. EYES: Pupils equal round and reactive to light, extraocular movements intact, sclera anicteric, conjunctiva left shows injection/episcleritis b/l w. tearing. Non-tender to palp of the globe and eye itself. No surrounding erythema or swelling noted. Visual acuity 20/25 b/l and in each eye (performed by myself at bedside with my own eye chart). Wood's lamp/flourescein: No abrasion, laceration, ulceration, or jennifer sign noted. No obvious foreign body appreciated. ENT: Nares patent and without discharge. oropharynx clear without exudates. No tonsilar hypertrophy or erythema. Moist mucous membranes. No sinus tenderness. Uvula midline. No palatine shift. No airway compromise. No drooling or hoarseness. NECK: Normal range of motion, supple without lymphadenopathy. No rigidity/meningismus. LUNGS: Breath sounds clear to auscultation bilaterally and equal. No wheezes rales or rhonchi. HEART: Regular rate and rhythm without murmurs, rubs, gallops. Extremities: No cyanosis, clubbing, or edema b/l. Peripheral pulses 2+. Capillary refill less than 3 seconds. NEUROLOGICAL: Cranial nerves grossly intact. Normal speech, normal gait. Normal sensory, motor exams PSYCH: Normal mood, normal affect. SKIN: Warm, Dry, normal turgor, no rashes or lesions noted. - INFECTION CONTROL TRAVEL OUTSIDE OF THE [place] IN LAST 30 DAYS: No Course - Re-evaluation Re-evalutation: 07/09/19 08:32 Patient is an afebrile, well-hydrated, 33-year-old female who presents to the emergency department with b/l conjunctivitis, possible viral vs mild bacterial. Vitals are acceptable without significant tachycardia, tachypnea, or hypoxia. PE is otherwise unremarkable. Eye exam otherwise benign. Tetracaine completely resolved symptoms when applied. Patient is nontoxic-appearing and is able to tolerate p.o. without difficulty. No labs or imaging warranted. Low suspicion for any retained corneal or lid foreign body, deep space infection including orbital cellulitis/abscess, acute glaucoma, penetrating globe injury, retinal detachment, meningitis, sepsis, fracture, compartment syndrome. I will send home with a prescription for erythromycin to use as directed (not to drive while using med). Conservative measures otherwise for symptoms with proper handwashing. Recheck with your PCM in 2-3 days. Consider follow-up with ophthalmology. Return to the ED with any worsening/concerning symptoms otherwise as reviewed in discharge. Patient is in agreement. - Vital Signs Vital signs: Temp Pulse Resp BP Pulse Ox 98.5 F 76 16 127/87 H 100 07/09/19 03:57 07/09/19 03:57 07/09/19 03:57 07/09/19 03:57 07/09/19 03:57 Procedures - Eye Procedure Bilateral Eye Irrigated w/ Saline (ccs): 20 Alcaine Drops Administered: Yes - tetracaine Fluorescein applied: Bilateral Discharge - Discharge Clinical Impression: Bilateral conjunctivitis Qualifiers: Conjunctivitis type: unspecified Qualified Code(s): H10.9 - Unspecified conjunctivitis Condition: Stable Disposition: HOME, SELF-CARE Instructions: Conjunctivitis ([facility]) Additional Instructions: Keep eyes clean Avoid scratching/touching eyes Wash hands regularly Use eye drops as directed Maintain adequate fluid intake tylenol/ibuprofen as needed over the counter cold medication as needed for symptoms F/u: with your PCM in 2-3 days for a recheck Consider consult with Ophthalmology for ongoing/worsening symptoms Return to the ED with any worsening symptoms and/or development of fever, headache, changes in vision, eye pain, worsening eye redness, redness around the eyes, purulent discharge, sore throat, facial swelling, neck pain/stiffness, chest pain, palpitations, syncope, shortness of breath, trouble breathing, abdominal pain, n/v/d, blood in stool/urine, dysuria, or other worsening symptoms that are concerning to you. Forms: Smoking Cessation Education, Elevated Blood Pressure Referrals: HEATHER GROVER MD [ACTIVE STAFF] - Follow up as needed
[2019-07-09 08:52] VITALS: BP 137/86
== END 2019-07-09 08:49 | disposition home or self-care (01) ==
LOC: ER 03:50
DX: H10.9 Unspecified conjunctivitis (principal); F17.210 Nicotine dependence, cigarettes, uncomplicated
CPT/HCPCS: 99282

== ENCOUNTER 2020-03-26 21:20 | Emergency (ER) | payer SELFPAY | END 2020-03-26 22:17 | disposition left against medical advice (07) | LOC: ER 21:20 | DX: Z53.21 Procedure and treatment not carried out due to patient leaving prior to being seen by health care provider (principal) ==